=== PATIENT | male | born 1995 | race Caucasian/White ===

== ENCOUNTER → 2021-12-19 20:15 | Outpatient (CLI) | payer OTHER, SELFPAY ==
[2021-12-19 21:57] LABS: Amphetamine/Metha Screen,Urine Negative ng/ml (<1000)
[2021-12-19 21:58] LABS: Barbiturates Screen,Urine Negative ng/ml (<200); Benzodiazepines Screen,Urine Negative ng/ml (<200)
[2021-12-19 22:00] LABS: Cannabinoid Screen,Urine Negative ng/ml (<50); Cocaine Screen,Urine Negative ng/ml (<300)
[2021-12-19 22:01] LABS: Methadone Screen,Urine Negative ng/ml (<300)
[2021-12-19 22:02] LABS: Opiate Screen,Urine Negative ng/ml (<300); Phencyclidine Screen,Urine Negative ng/ml (<25)
== END ==
PROVIDERS: PCP Family Medicine; Visit Provider Emergency Medicine
DX: Z02.89 Encounter for other administrative examinations (principal)
CPT/HCPCS: 80305